=== PATIENT | female | born 1990 | race Hispanic/Latino ===

== ENCOUNTER 2021-09-05 18:12 | Emergency (ER) | payer BC ==
[2021-09-05] MEDS ORDERED: IBUPROFEN 200 MG TAB PO ONE (18:49)
[2021-09-05] MEDS ORDERED: LIDOCAINE 1% MPF 5 ML VIAL ONE (18:49)
[2021-09-05] MEDS ORDERED: TETANUS & DIPHTHERIA TOX,ADULT 0.5 ML VIAL ONE (18:49)
--- NOTE | 2021-09-05 19:18 | ER ---
Nurse's Notes [facility] Name: Mony Schneider Age: 30 yrs Sex: Female : 1990 Arrival Date: 09/05/2021 Time: 18:14 Bed 19 Private MD: Diagnosis: Cellulitis of right finger-paronychia 4th finger Presentation: 09/05 18:33 Chief complaint: Patient states: right ring finger reddened and swollen x2 days post 5 press on nail removal. Pt endorses pain. Coronavirus screen: Vaccine status: Patient reports receiving the 2nd dose of the covid vaccine. Client denies travel out of the [place] in the last 14 days. Ebola Screen: Patient negative for fever greater than or equal to 101.5 degrees Fahrenheit, and additional compatible Ebola Virus Disease symptoms Patient denies exposure to infectious person. Patient denies travel to an Ebola-affected area in the 21 days before illness onset. No symptoms or risks identified at this time. Initial Sepsis Screen: Does the patient meet any 2 criteria? No. Patient's initial sepsis screen is negative. Does the patient have a suspected source of infection? No. Patient's initial sepsis screen is negative. Risk Assessment: Do you want to hurt yourself or someone else? Patient reports no desire to harm self or others. Onset of symptoms was September 03, 2021. 18:33 Method Of Arrival: Ambulatory [facility] 18:33 Acuity: FLOYD 3 5 Triage Assessment: 18:37 General: Appears in no apparent distress. well groomed, well developed, well nourished, [facility] Behavior is calm, cooperative, appropriate for age. Pain: Complains of pain in right hand. Neuro: No deficits noted. Cardiovascular: No deficits noted. Respiratory: No deficits noted. Historical: - Allergies: 18:37 No Known Allergies; [facility] - Home Meds: 18:37 None [Active]; [facility] - PMHx: 18:37 None; [facility] - Immunization history:: Adult Immunizations up to date. - Social history:: Smoking status: Patient denies any tobacco usage or history of. Screenin:38 Abuse screen: Denies threats or abuse. Denies injuries from another. Nutritional [facility] screening: No deficits noted. Tuberculosis screening: No symptoms or risk factors identified. Fall Risk None identified. Vital Signs: 18:33 BP 126 / 82; Pulse 76; Resp 18; Pulse Ox 98% ; Weight 67.13 kg; Height 5 ft. 7 in. [facility] (170.18 cm); 18:33 Body Mass Index 23.18 (67.13 kg, 170.18 cm) [facility] ED Course: 18:14 Patient arrived in ED. as 18:31 Andreas Durant NP is PHCP. pm1 18:31 Thien Shahid MD is Attending Physician. pm1 18:31 Radni Matthews, RN is Primary Nurse. 5 18:37 Triage completed. 5 18:38 Patient has correct armband on for positive identification. Bed in low position. Call [facility] light in reach. Side rails up X 1. 19:13 Dutch Patrick MD is Referral Physician. pm1 Administered Medications: 18:53 Drug: Lidocaine (1 %) 5 ml {Note: given to Andreas alford NP.} Volume: 5 ml; Route: [facility] Infiltration; 18:53 Drug: Tetanus-Diphtheria Toxoid Adult 0.5 ml {Neuropsychology Division Chief: [employer]. Exp: [facility] 02/11/2023. Lot #: [id number]. } Route: IM; Site: left deltoid; 18:55 Drug: Ibuprofen 600 mg Route: PO; [facility] Outcome: 19:17 Discharge ordered by . pm1 19:44 Patient left the ED. [facility] Signatures: Lacey Ferreira as Andreas Durant NP DECK LID FITTER pm1 Randi Matthews, RN RN [facility]
--- NOTE | 2021-09-05 19:18 | EDPHYS ---
Physician Documentation [facility] Name: Mony Schneider Age: 30 yrs Sex: Female : 1990 Arrival Date: 09/05/2021 Time: 18:14 Bed 19 Private MD: ED Physician Thien Shahid HPI: 09/05 18:42 This 30 yrs old Female presents to ER via Ambulatory with complaints of pm1 fingernail infection. 18:42 The patient or guardian reports swelling. The complaints affect the right ring pm1 fingernail. Context: resulted from possibly from press on nail. Onset: The symptoms/episode began/occurred 2 day(s) ago. Modifying factors: The symptoms are alleviated by expressing some drainage from swollen area. Associated signs and symptoms: Pertinent negatives: cyanosis distally, decreased sensation distally, fever, numbness distally, tingling distally. Severity of symptoms: in the emergency department the symptoms are actually worse. The patient has not experienced similar symptoms in the past. The patient has not recently seen a physician. Historical: - Allergies: 18:37 No Known Allergies; [facility] - Home Meds: 18:37 None [Active]; [facility] - PMHx: 18:37 None; [facility] - Immunization history:: Adult Immunizations up to date. - Social history:: Smoking status: Patient denies any tobacco usage or history of. ROS: 18:42 Constitutional: Negative for fever, chills, and weight loss. pm1 18:42 Cardiovascular: Negative for chest pain, palpitations, and edema, Respiratory: Negative for shortness of breath, cough, wheezing, and pleuritic chest pain. 18:42 Neuro: Negative for headache, weakness, numbness, tingling, and seizure. 18:42 MS/extremity: Positive for pain, swelling, tenderness, of the right ring finger distal aspect. 18:42 Skin: Positive for swelling, of the lateral aspect of cuticle distal right ring finger. 18:42 All other systems are negative. Exam: 18:42 Constitutional: This is a well developed, well nourished patient who is awake, alert, pm1 and in no acute distress. Head/Face: Normocephalic, atraumatic. 18:42 Cardiovascular: Exam negative for acute changes, Rate: normal, Rhythm: regular, Pulses: no pulse deficits are appreciated. 18:42 Respiratory: Exam negative for acute changes, respiratory distress, shortness of breath. 18:42 Musculoskeletal/extremity: ROM: full active range of motion, in the right hand and right ring finger, full passive range of motion, in the right hand and right ring finger, the right hand Sensation intact. 18:42 Skin: Appearance: normal except for affected area, mild swelling with fluctuance present to lateral aspect of right ring finger cuticle. 18:42 Neuro: Exam negative for acute changes, Orientation: is normal, Mentation: is normal, Motor: moves all fours, Sensation: no obvious gross deficits. Vital Signs: 18:33 BP 126 / 82; Pulse 76; Resp 18; Pulse Ox 98% ; Weight 67.13 kg; Height 5 ft. 7 in. [facility] (170.18 cm); 18:33 Body Mass Index 23.18 (67.13 kg, 170.18 cm) [facility] Procedures: 19:03 I \T\ D: Incision and drainage was performed for an abscess of the right ring finger pm1 lateral aspect of cuticle Prepped with Betadine, Anesthetized with 2 ml's 1% Lidocaine. Incised with #11 blade. Drained small amount purulent fluid. the patient tolerated the procedure well. MDM: 18:39 Patient medically screened. pm1 19:03 Data reviewed: vital signs. Data interpreted: Pulse oximetry: on room air is 98 %. pm1 Interpretation: normal. Counseling: I had a detailed discussion with the patient and/or guardian regarding: the historical points, exam findings, and any diagnostic results supporting the discharge/admit diagnosis, the need for outpatient follow up, a hand specialist, to return to the emergency department if symptoms worsen or persist or if there are any questions or concerns that arise at home. Administered Medications: 18:53 Drug: Lidocaine (1 %) 5 ml {Note: given to provider, Andreas BYNUM.} Volume: 5 ml; Route: [facility] Infiltration; 18:53 Drug: Tetanus-Diphtheria Toxoid Adult 0.5 ml {Paint Stripper: [employer]. Exp: [facility] 02/11/2023. Lot #: [id number]. } Route: IM; Site: left deltoid; 18:55 Drug: Ibuprofen 600 mg Route: PO; 5 Disposition: 09/06 07:06 Co-signature as Attending Physician, Thien Shahid MD I agree with the assessment and harshal plan of care. Disposition Summary: 09/05/21 19:17 Discharge Ordered Location: Home pm1 Problem: new pm1 Symptoms: have improved pm1 Condition: Stable pm1 Diagnosis - Cellulitis of right finger - paronychia 4th finger pm1 Followup: pm1 - With: Emergency Department - When: As needed - Reason: Worsening of condition Followup: pm1 - With: Dutch Patrick MD - When: 2 - 3 days - Reason: Recheck today's complaints, Continuance of care, Re-evaluation by your physician Discharge Instructions: - Discharge Summary Sheet pm1 - Paronychia, Xbav-al-Lpmt pm1 Forms: - Medication Reconciliation Form pm1 - Thank You Letter pm1 - Antibiotic Education pm1 - Prescription Opioid Use pm1 - Work release form ld1 Prescriptions: - Bactrim DS 800-160 mg Oral Tablet - take 1 tablet by ORAL route every 12 hours for 10 days; 20 tablet; Refills: 0, pm1 Product Selection Permitted Signatures: Thien Shahid MD MD cha Marinas, Patrick, NP DATABASE MARKETING MANAGER pm1 Randi Matthews, RN RN jh5
[2021-09-05 19:51] VITALS: BP 126/82; O2SAT 98
== END 2021-09-05 19:44 | disposition home or self-care (01) ==
LOC: ER 18:12
PROC: 0H9FXZZ Drainage of Right Hand Skin, External Approach (ICD-10-PCS; principal; 2021-09-05)
DX: L03.011 Cellulitis of right finger (principal); Z23 Encounter for immunization
CPT/HCPCS: 90471; 90714; 99282

== ENCOUNTER 2022-08-04 14:00 | Emergency (ER) | payer SELFPAY ==
--- OUTSIDE RECORDS SUMMARY | 2022-08-04 14:04 | XMS REPORT | Continuity of Care Document ---
:1990 Author Organization [facility] t Address [address] [place] [address] Care Team Providers Name Role Phone Mable Fiore DO Primary Care Physician MABLE FIORE Attending Clinician Unavailable KESHAWN TAYLOR Attending Clinician Unavailable LAB90 Attending Clinician Unavailable Mable Fiore DO Attending Clinician Payers Payer Name Policy Type Policy Number Effective Date Expiration Date S franky BCBS 2 [id number] 2021 00:00:00 Problems Condition Condition Condition Status Onset Resolution Last Treating Co mments Source Name Details Category Date Date Treatment Clinician Date Hair loss Hair loss Disease Active Peter sey 3-10 Seybold 00:00: 00 Type 2 Type 2 Disease Active Darya diabetes diabetes 2-10 Seybol d mellitus mellitus 00:00: with with 00 hyperglyce hyperglyce gabriel, with gabriel, with long-term long-term current current use of use of insulin insulin (HCC) - (HCC) - Not Not Controlled Controlled Allergies, Adverse Reactions, Alerts This patient has no known allergies or adverse reactions. Social History Social Habit Start Date Stop Date Quantity Comments Source Sex Ass[birth year] Darya Tabares ybold 00:00:00 00:00:00 Smoking Status Start Date Stop Date Source Never smoked tobacco Darya Ordaz old Medications Ordered Filled Start Stop Current Ordering Indication Dosage Frequency Signature Comments Components Source Medication Medication Date Date Medication? Clinician (SIG) Name Name Continuous Yes [id number] 1{each} 1 each by Darya Blood Gluc 3-29 does not Seybo ld Sensor 00:00: apply (FreeStyle 00 route Gunnar 2 every 14 Sensor) days does not apply Misc Semglee, No INJECT 40 Peter sey yfgn, 100 2-26 03-10 UNITS Seybold UNIT/ML 00:00: 00:00 UNDER THE subcutaneou 00 :00 SKIN ONCE s Solution DAILY Metformin Yes [id number] 500mg Take 1 K elsey HCl 500 MG 2-10 tablet Seybold oral Tablet 00:00: (500 mg 00 total) by mouth 2 times daily (with meals) Insulin Yes [id number] 40 units Ke lsey Detemir 2-10 SC daily Seybold (Levemir 00:00: for FlexTouch) 00 Diabetes 100 UNIT/ML Mellitus subcutaneou Type 2 s Solution Pen-injecto r Continuous Yes [id number] 1{each} 1 each by Darya Blood Gluc 2-10 does not Seybo ld Sensor 00:00: apply (FreeStyle 00 route Gunnar 2 every 14 Sensor) days does not apply Misc Continuous Yes [id number] 1{each} 1 each by Darya Blood Gluc 2-10 does not Seybo ld Child Welfare Caseworker 00:00: apply (FreeStyle 00 route Gunnar 2 daily Dunlap) Check BS does not twice apply daily(Fast Device ing and 2 hours after dinner) Biotin (HM Yes 1{each} Take 1 Ke lsey Biotin) 2-10 each by Seybold [id number] MCG 00:00: mouth oral TABLET 00 daily DISPERSIBLE Prescribed by Dr. Terryel-SENIOR CIVIL ENGINEER medroxyPROG Yes 10mg Take 1 Alice ey ESTERone 2-10 tablet (10 Seybo ld Acetate 00:00: mg total) (Provera) 00 by mouth 10 MG oral daily Tablet Prescribed by Dr. Tran-SENIOR CIVIL ENGINEER Metformin Yes [id number] 500mg Take 1 K elsey HCl 500 MG 2-10 tablet Seybold oral Tablet 00:00: (500 mg 00 total) by mouth 2 times daily (with meals) Insulin Yes [id number] 40 units Ke lsey Detemir 2-10 SC daily Seybold (Levemir 00:00: for FlexTouch) 00 Diabetes 100 UNIT/ML Mellitus subcutaneou Type 2 s Solution Pen-injecto r Continuous Yes [id number] 1{each} 1 each by Darya Blood Gluc 2-10 does not Seybo ld Sensor 00:00: apply (FreeStyle 00 route Gunnar 2 every 14 Sensor) days does not apply Misc Continuous Yes [id number] 1{each} 1 each by Darya Blood Gluc 2-10 does not Seybo ld Child Welfare Caseworker 00:00: apply (FreeStyle 00 route Gunnar 2 daily Dunlap) Check BS does not twice apply daily(Fast Device ing and 2 hours after dinner) Biotin ( Yes 1{each} Take 1 Ke lsey Biotin) 2-10 each by Seybold [id number] MCG 00:00: mouth oral TABLET 00 daily DISPERSIBLE Prescribed by Dr. Tran-RUBÉN medroxyPROG Yes 10mg Take 1 Alice ey ESTERone 2-10 tablet (10 Seybo ld Acetate 00:00: mg total) (Provera) 00 by mouth 10 MG oral daily Tablet Prescribed by Dr. Tran-RUBÉN Metformin Yes [id number] 500mg Take 1 K elsey HCl 500 MG 2-10 tablet Seybold oral Tablet 00:00: (500 mg 00 total) by mouth 2 times daily (with meals) Continuous Yes [id number] 1{each} 1 each by Darya Blood Gluc 2-10 does not Seybo ld Child Welfare Caseworker 00:00: apply (FreeStyle 00 route Gunnar 2 daily Dunlap) Check BS does not twice apply daily(Fast Device ing and 2 hours after dinner) Biotin ( Yes 1{each} Take 1 Ke lsey Biotin) 2-10 each by Seybold [id number] MCG 00:00: mouth oral TABLET 00 daily DISPERSIBLE Prescribed by Dr. Tran-RUBÉN medroxyPROG Yes 10mg Take 1 Alice ey ESTERone 2-10 tablet (10 Seybo ld Acetate 00:00: mg total) (Provera) 00 by mouth 10 MG oral daily Tablet Prescribed by Dr. Tran-SENIOR CIVIL ENGINEER Insulin No [id number] 40 units K carmely Detemir 2 03-29 SC daily Seybold (Levemir 00:00: 00:00 for FlexTouch) 00 :00 Diabetes 100 UNIT/ML Mellitus subcutaneou Type 2 s Solution Pen-injecto r Semglee, 2021- No INJECT 40 Peter y yfgn, 100 2- UNITS Seybold UNIT/ML 00:00: 00:00 UNDER THE subcutaneou 00 :00 SKIN ONCE s Solution DAILY RELION 2021- No USE 1 Darya INSULIN SYR 11-06 SYRINGE Seyb old 0.5ML/31G 00:00: 00:00 ONCE DAILY 31G X 5/16" 00 :00 0.5 ML does DIRECTED not apply Misc Lancets No 3 times Darya (OneTouch 11-06 daily as Seybo ld Delica Plus 00:00: 00:00 directed [id number]) 00 :00 does not apply Misc Blood No 3 times Darya Glucose 11-06- daily as Seybold Monitoring 00:00: 00:00 directed Suppl 00 :00 (OneTouch Verio Reflect) w/Device does not apply Kit Immunizations Ordered Immunization Filled Immunization Date Status Commen ts Source Name Name Influenza Virus 2021-10-17 Completed Darya Tabares ybold Vaccine, No Preserv, 00:00:00 age 6 months and up Influenza Virus 2021-10-17 Completed Darya Tabares ybold Vaccine, No Preserv, 00:00:00 age 6 months and up Influenza Virus 2021-10-17 Completed Darya Tabares ybold Vaccine, No Preserv, 00:00:00 age 6 months and up Tdap- (Boostrix, 2015-06-22 Completed Darya herron Adacel) 00:00:00 Tdap- (Boostrix, 2015-06-22 Completed Darya greenbogracie Adacel) 00:00:00 Tdap- (Boostrix, 2015-06-22 Completed Darya Kemp eybogracie Adacel) 00:00:00 HPV 4 (Human 2014-11-18 Completed Darya Seybo ld Papillomavirus) 00:00:00 HPV 4 (Human 2014-11-18 Completed Darya Seybo ld Papillomavirus) 00:00:00 HPV 4 (Human 2014-11-18 Completed Darya Seybo ld Papillomavirus) 00:00:00 HPV 4 (Human 2014-08-18 Completed Darya Seybo ld Papillomavirus) 00:00:00 HPV 4 (Human 2014-08-18 Completed Darya Seybo ld Papillomavirus) 00:00:00 HPV 4 (Human 2014-08-18 Completed Darya Seybo ld Papillomavirus) 00:00:00 Td (adult) 2005 Completed Darya Seybold 00:00:00 Td (adult) 2005 Completed Darya Seybold 00:00:00 Td (adult) 2005 Completed Darya Seybold 00:00:00 Vital Signs Vital Name Observation Time Observation Value Comments Source Systolic blood 2021-12-27 21:15:00 103 mm[Hg] Darya Seybold pressure Diastolic blood 2021-12-27 21:15:00 67 mm[Hg] Kelse y Seybold pressure Heart rate 2021-12-27 21:15:00 66 /min Darya greenbogracie Body temperature 2021-12-27 21:15:00 37.06 Barbara Alice ey Seybold Respiratory rate 2021-12-27 21:15:00 14 /min Alice green Seybold Body height 2021-12-27 21:15:00 160 cm aDrya herron Body weight 2021-12-27 21:15:00 72.576 kg with shoes Darya greenbold BMI 2021-12-27 21:15:00 28.34 kg/m2 Darya greenbold Oxygen saturation in 2021-12-27 21:15:00 100 /min Darya Cortez Arterial blood by Pulse oximetry Systolic blood 2021-12-08 14:13:00 102 mm[Hg] Darya Seybold pressure Diastolic blood 2021-12-08 14:13:00 68 mm[Hg] Kelse y Seybold pressure Heart rate 2021-12-08 14:13:00 72 /min Darya S eybold Body temperature 2021-12-08 14:13:00 36.5 Barbara Alice ey Seybold Respiratory rate 2021-12-08 14:13:00 12 /min Alice ey Seybold Body height 2021-12-08 14:13:00 160 cm Darya S eybold Body weight 2021-12-08 14:13:00 71.215 kg Darya Kemp eybold BMI 2021-12-08 14:13:00 27.81 kg/m2 Darya S eybold Systolic blood 2021-11-10 14:11:00 102 mm[Hg] Darya Seybold pressure Diastolic blood 2021-11-10 14:11:00 68 mm[Hg] Kelse y Seybold pressure Heart rate 2021-11-10 14:11:00 78 /min Darya greenbold Body temperature 2021-11-10 14:11:00 36.5 Barbara Alice ey Seybold Respiratory rate 2021-11-10 14:11:00 12 /min Alice ey Seybold Body height 2021-11-10 14:11:00 160 cm Darya Kemp eybold Body weight 2021-11-10 14:11:00 71.215 kg Darya greenbold BMI 2021-11-10 14:11:00 27.81 kg/m2 Darya greenbogracie Procedures This patient has no known procedures. Encounters Start End Encounter Admission Attending Care Care Encounter Source Date/Time Date/Time Type Type Clinicians Facility Department ID 2022-08-04 2022-08-04 Outpatient DARYA FIORE [id number] Darya 00:00:00 00:00:00 MABLE Seybol d 2022-06-29 2022-06-29 Outpatient DARYA FIORE [id number] Darya 10:00:00 10:00:00 MABLE Seybol d 2022-03-29 2022-03-29 Outpatient DARYA FIORE [id number] Darya 08:15:00 08:15:00 MABLE Seybol d 2022-03-27 2022-03-27 Outpatient DARYA FIORE [id number] Darya 00:00:00 00:00:00 MABLE Seybol d 2022-03-23 2022-03-23 Outpatient CHITSAZZADE DARYA FOSTER [id number] Darya 08:30:00 08:30:00 H, KESHAWN Seybol d 2022-03-10 2022-03-10 Outpatient PREZADARYA Kemp DARYA [id number] Darya 08:00:00 08:00:00 MABLE Seybol d 2021-12-28 2021-12-28 Outpatient LAB90 DARYA FOSTER [id number] Darya 08:50:00 08:50:00 Seybol d 2021-12-28 2021-12-28 Outpatient PREZAS, DARYA FOSTER [id number] Darya 00:00:00 00:00:00 MABLE Seybol d 2021-12-27 2021-12-27 Office Jorge Fiore [id number] Darya 16:30:00 16:45:00 Visit Mable Sparks [id number] Se ybold [id number] 2021-12-27 2021-12-27 Outpatient PREZAJusto, DARYA FOSTER [id number] Darya 00:00:00 00:00:00 MABLE Seybol d 2021-12-08 2021-12-08 Office Jorge Fiore [id number] Darya 08:00:00 08:30:00 Visit Mable Sparks [id number] Se ybold [id number] 2021-11-10 2021-11-10 Office Jorge Fiore [id number] Darya 08:30:00 09:00:00 Visit Mable Sparks [id number] Se ybold [id number] 2021-11-10 2021-11-10 Outpatient MACARENA DARYA DARYA [id number] Darya 00:00:00 00:00:00 MABLE Seybol d Results Test Description Test Time Test Comments Results Result Comments Source SARS-CoV-2 (COVID-19), RT-PCR/TMA 2021-10-20 15:38:42 Test Item Value Reference Range Interpretation Comme nts SARS-CoV-2 INTERPRETATION NEGATIVE SEE NOTE S ARS-CoV-2 RNA NOT (test code = 34706) DETECTED Negative results do not preclude SARS-C oV-2 infection and should notb e used as the sole basis for patient management deci sions. Negativeresults must be combined with c linical observations, p atient history,and epi demiological information. Op timum specimen types and timin gfor peak viral levels during i nfections caused by SARS-CoV-2 h ave notbeen determined. Col lection of multiple specim ens or types ofspecimens may be necessary to detect virus. I mproper specimencollect ion and handling, seque nce variability under primers/p robes,or organism presen t below the limit of detect ion may lead to falsenegative r esults. Positive and negative pr edictive values oftesting are h ighly dependent on prevalence. False negative testresults are more likely when prevalence is high. SOURCE (test code = 23108) NASOPHARYNGEAL Note: Methodology is Ramya Vilma Real-Time RT-PCR. The expected result or reference range is NEGATI VE (Not Detected). For more information regarding COVID -19 testing to include clinica linformation, methodology det ail, intended use, FDA author ization andrecommended fact sheets for patients or a lthcare providers, see NewTest Announcement: S ARS-CoV-2 (COVID-19) by N AAT at URL below (note,fact shee ts are provided by method given in report:https:// www.[employer]/ clinicians/lucas nt-communication s/ Alternativel y, see downloadable PD F fact sheet at:https://www. [employer]/COVI D-19-RT-PCR UNL ESS OTHERWISE INDICATED, ALL TESTING PERFORMED [facility], [place]. [address] [place] [address], [place] [id number] 4 REFINERY OPERATOR COKING: Fatimah HURD [id number] [employer] ACCREDITATION N O. [id number]
--- NOTE | 2022-08-04 15:02 | ER ---
Nurse's Notes [facility] Name: Mony Schneider Age: 31 yrs Sex: Female : 1990 Arrival Date: 08/04/2022 Time: 14:03 Bed 11 Private MD: Diagnosis: Cutaneous abscess of right hand-paronychia, fourth digit Presentation: 08/04 14:18 Chief complaint: Patient states: pulled a hangnail about a week ago and noticed vg1 swelling and redness. Also stated drainage. Coronavirus screen: Vaccine status: Patient reports receiving the 2nd dose of the covid vaccine. Client denies travel out of the [place] in the last 14 days. Ebola Screen: Patient negative for fever greater than or equal to 101.5 degrees Fahrenheit, and additional compatible Ebola Virus Disease symptoms. Initial Sepsis Screen: Does the patient meet any 2 criteria? No. Patient's initial sepsis screen is negative. Does the patient have a suspected source of infection? No. Patient's initial sepsis screen is negative. Risk Assessment: Do you want to hurt yourself or someone else? Patient reports no desire to harm self or others. Onset of symptoms was July 28, 2022. 14:18 Method Of Arrival: Ambulatory vg1 14:18 Acuity: FLOYD 4 vg1 Triage Assessment: 14:20 General: Appears in no apparent distress. comfortable, Behavior is calm, cooperative. vg1 Pain: Complains of pain in dorsal aspect of distal phalanx of right ring finger and right ring fingernail Pain currently is 5 out of 10 on a pain scale. Musculoskeletal: Circulation, motion, and sensation intact. Swelling present in dorsal aspect of distal phalanx of right ring finger and right ring fingernail. 14:20 Derm: Skin is red, to Right ring finger. 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 - Social history:: Smoking status: Patient denies any tobacco usage or history of. Screenin:30 Abuse screen: Denies threats or abuse. Denies injuries from another. Nutritional tp1 screening: No deficits noted. Tuberculosis screening: No symptoms or risk factors identified. Fall Risk None identified. Assessment: 14:26 General: Appears in no apparent distress. comfortable, Behavior is calm, cooperative. tp1 Pain: Complains of pain in right ring fingernail Pain radiates to dorsal aspect of distal phalanx of right ring finger Pain currently is 5 out of 10 on a pain scale. Neuro: Level of Consciousness is awake, alert, obeys commands, Oriented to person, place, time, situation. Cardiovascular: Capillary refill < 3 seconds in bilateral fingers Patient's skin is warm and dry. Respiratory: Airway is patent Respiratory effort is even, unlabored. GI: No signs and/or symptoms were reported involving the gastrointestinal system. : No signs and/or symptoms were reported regarding the genitourinary system. EENT: No signs and/or symptoms were reported regarding the EENT system. Derm: Skin is pink, warm \T\ dry. right ring finger appears red and swollen with white drainage noted. Musculoskeletal: Circulation, motion, and sensation intact. Swelling present in right ring fingernail. Vital Signs: 14:18 BP 119 / 76; Pulse 78; Resp 18; Temp 98.4; Pulse Ox 100% ; Weight 76.2 kg; Height 5 ft. vg1 3 in. (160.02 cm); Pain 5/10; 14:18 Body Mass Index 29.76 (76.20 kg, 160.02 cm) vg1 ED Course: 14:03 Patient arrived in ED. rg4 14:12 Kaila Sparks FNP-C is [facility]. kb 14:12 Dominic Peterson MD is Attending Physician. kb 14:20 Triage completed. vg1 14:20 Arm band placed on. vg1 14:26 Rosalba Gomez, MYRON is Primary Nurse. tp1 14:30 Patient has correct armband on for positive identification. Bed in low position. Call tp1 light in reach. 15:13 No provider procedures requiring assistance completed. Patient did not have IV access tp1 during this emergency room visit. Administered Medications: 15:13 Drug: Bactrim (trimethoprim-sulfamethoxazole) (160 mg-800 mg (DS) 1 tablet Route: PO; tp1 15:13 Follow up: Response: Medication administered at discharge. tp1 Medication: 15:13 VIS not applicable for this client. tp1 Outcome: 15:02 Discharge ordered by MD. lindsay 15:13 Discharged to home ambulatory. tp1 15:13 Condition: good 15:13 Discharge instructions given to patient, Instructed on discharge instructions, follow up and referral plans. medication usage, Demonstrated understanding of instructions, follow-up care, medications, Prescriptions given X 1. 15:31 Patient left the ED. tp1 Signatures: Kaila Sparks FNP-C FNP-Georgina Shoemaker rg4 Nila Dee, RN RN vg1 Rosalba Gomez RN RN tp1 Corrections: (The following items were deleted from the chart) 14:22 14:20 Musculoskeletal: Circulation, motion, and sensation intact. vg1 vg1
--- NOTE | 2022-08-04 15:03 | EDPHYS ---
Physician Documentation [facility] Name: Mony Schneider Age: 31 yrs Sex: Female : 1990 Arrival Date: 08/04/2022 Time: 14:03 Bed 11 Private MD: ED Physician Dominic Peterson HPI: 08/04 15:07 This 31 yrs old Female presents to ER via Ambulatory with complaints of Finger kb Infection. 15:07 the patient presents with a swollen area of the right ring fingernail. Description: kb erythematous, swollen. Onset: The symptoms/episode began/occurred 1 week(s) ago. Possible cause(s): unknown. Associated signs and symptoms: Pertinent positives: erythema, swelling, Pertinent negatives: discharge, drainage, foreign body sensation, fever, headache, nausea, shortness of breath, vomiting. Modifying factors: the symptoms are alleviated by nothing, the symptoms are aggravated by pressure, squeezing the lesion and expressing the contents, touching. Severity of symptoms: At their worst the symptoms were mild, in the emergency department the symptoms are unchanged. The patient has not experienced similar symptoms in the past. The patient has not recently seen a physician. 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 - Social history:: Smoking status: Patient denies any tobacco usage or history of. ROS: 15:06 Constitutional: Negative for fever, chills, and weight loss. kb 15:06 Skin: Positive for erythema, swelling, of the right ring fingernail. 15:06 All other systems are negative. Exam: 15:06 Constitutional: This is a well developed, well nourished patient who is awake, alert, kb and in no acute distress. Head/Face: Normocephalic, atraumatic. ENT: Moist Mucous membranes Cardiovascular: Regular rate and rhythm with a normal S1 and S2. No gallops, murmurs, or rubs. No pulse deficits. Respiratory: Respirations even and unlabored. No increased work of breathing. Talking in full sentences MS/ Extremity: Pulses equal, no cyanosis. Neurovascular intact. Full, normal range of motion. Neuro: Awake and alert, GCS 15, oriented to person, place, time, and situation. Moves all extremities. Normal gait. Psych: Awake, alert, with orientation to person, place and time. Behavior, mood, and affect are within normal limits. 15:06 Skin: abscess, that is small, of the right ring fingernail, with fluctuance, paronychia. Vital Signs: 14:18 BP 119 / 76; Pulse 78; Resp 18; Temp 98.4; Pulse Ox 100% ; Weight 76.2 kg; Height 5 ft. vg1 3 in. (160.02 cm); Pain 5/10; 14:18 Body Mass Index 29.76 (76.20 kg, 160.02 cm) vg1 Procedures: 15:07 I \T\ D: Incision and drainage was performed for an abscess of the right ring fingernail kb Prepped with alcohol, Incised with 18G needle used to push cuticle away from nail. Drained small amount purulent fluid. the patient tolerated the procedure well. MDM: 14:12 Patient medically screened. kb 15:05 Data reviewed: vital signs, nurses notes. Data interpreted: Pulse oximetry: on room air kb is 100 %. Interpretation: normal. Counseling: I had a detailed discussion with the patient and/or guardian regarding: the historical points, exam findings, and any diagnostic results supporting the discharge/admit diagnosis, the need for outpatient follow up, a family practitioner, to return to the emergency department if symptoms worsen or persist or if there are any questions or concerns that arise at home. Administered Medications: 15:13 Drug: Bactrim (trimethoprim-sulfamethoxazole) (160 mg-800 mg (DS) 1 tablet Route: PO; tp1 15:13 Follow up: Response: Medication administered at discharge. tp1 Disposition: 17:35 Co-signature as Attending Physician, Dominic Peterson MD. rn Disposition Summary: 08/04/22 15:02 Discharge Ordered Location: Home kb Condition: Stable kb Diagnosis - Cutaneous abscess of right hand - paronychia, fourth digit kb Followup: kb - With: Emergency Department - When: As needed - Reason: Worsening of condition Followup: kb - With: Private Physician - When: 2 - 3 days - Reason: Recheck today's complaints, Continuance of care, Re-evaluation by your physician Discharge Instructions: - Discharge Summary Sheet kb - Paronychia, [id number] kb Forms: - Medication Reconciliation Form kb - Thank You Letter kb - Work release form kb - Antibiotic Education kb - Prescription Opioid Use kb Prescriptions: - Bactrim DS 800-160 mg Oral Tablet - take 1 tablet by ORAL route every 12 hours for 10 days; 20 tablet; Refills: 0, kb Product Selection Permitted Signatures: Kaila Sparks, EBONYC Dominic Jaime MD MD rn Nila Dee RN RN vg1 Rosalba Gomez RN RN tp1
[2022-08-04] MEDS ORDERED: SMZ./TMP. 800/160 MG TABLET ONE (15:12)
[2022-08-04 16:08] VITALS: BP 119/76; TEMP 98.4; O2SAT 100
== END 2022-08-04 15:31 | disposition home or self-care (01) ==
LOC: ER 14:00
PROC: 0H9FXZZ Drainage of Right Hand Skin, External Approach (ICD-10-PCS; principal; 2022-08-04)
DX: L03.011 Cellulitis of right finger (principal); E11.9 Type 2 diabetes mellitus without complications
CPT/HCPCS: 99283